=== PATIENT | male | born 1950 | race Caucasian/White ===

== ENCOUNTER 2021-12-12 09:40 | Day surgery (SDC) | payer OTHER ==
[~2021-12-12 09:40] MED LIST: ATOR10 PO; Budeprion Xl300 MG PO; CYCL10 PO; DEPO-TESTO200 MG/1 M INJ; FENO145 PO; FLOMAX0.4 MG PO; MULVITA PO; Norco 10-325 T1 EACH PO; SILD50TA PO; TRAZ50 PO
== END 2021-12-12 23:02 | disposition home or self-care (01) ==
LOC: MHTC 09:40
DX: R55 Syncope and collapse (principal); H93.19 Tinnitus, unspecified ear
CPT/HCPCS: 33285; C1764